=== PATIENT | female | born 1955 | race Caucasian/White ===

== ENCOUNTER 2017-12-05 10:46 | Emergency (ER) | payer OTHER ==
[2017-12-05 11:19] VITALS: BP 136/84
--- NOTE | 2017-12-05 11:33 | UC ---
Lower Extremity/Ankle HPI - HPI Summary HPI Summary: 62 yo female presents with right foot pain. She tells me that she was walking earlier today and inverted her foot - now has 5th MT pain. Took naproxen with mild pain relief. Denies numbness or tingling. Is able to bear weight, but has significant pain. - History of Current Complaint Chief Complaint: UCLowerExtremity Stated Complaint: FOOT INJURY Time Seen by Provider: 12/05/17 11:32 Hx Obtained From: Patient Onset/Duration: Sudden Onset Severity Initially: Severe Severity Currently: Severe Pain Intensity: 7 Pain Scale Used: 0-10 Numeric Aggravating Factor(s): Standing, Ambulation Alleviating Factor(s): Rest, Elevation Able to Bear Weight: Yes - Allergies/Home Medications Allergies/Adverse Reactions: Allergies Allergy/AdvReac Type Severity Reaction Status Date / Time Penicillins Allergy Intermediate Rash Verified 12/05/17 11:19 Home Medications: Home Medications Thiamine TAB* [Vitamin B-1 TAB 100 MG*] 1 tab PO DAILY 12/05/17 [History Confirmed 12/05/17] PMH/Surg Hx/FS Hx/Imm Hx Endocrine History: Diabetes, Dyslipidemia - Surgical History Surgical History: Yes Surgery Procedure, Year, and Place: Right wrist surgery. csection. ectopic - Family History Known Family History: Positive: Diabetes - Social History Occupation: Employed Full-time Lives: With Family Alcohol Use: Daily Substance Use Type: None Smoking Status (MU): Never Smoked Tobacco - Immunization History Most Recent Tetanus Shot: UTD Review of Systems Constitutional: Negative Skin: Negative Respiratory: Negative Cardiovascular: Negative Neurovascular: Negative Musculoskeletal: Other: - Right foot pain Neurological: Negative Psychological: Negative All Other Systems Reviewed And Are Negative: Yes Physical Exam - Summary Physical Exam Summary: GENERAL: NAD. WDWN. No pain distress. SKIN: No rashes, sores, lesions, or open wounds. NECK: Supple. Nontender. No lymphadenopathy. CHEST: No accessory muscle use. Breathing comfortably and in no distress. CV: Pulses intact PT and DP. Brisk cap refill. MSK: Right foot: 5th MT TTP. FROM. Strength 5/5. No edema or obvious bony deformities. Negative talar tilt. No increased laxity. NEURO: Alert. Sensations intact and symmetric B/L LEs PSYCH: Age appropriate behavior. Triage Information Reviewed: Yes Vital Signs: Initial Vital Signs Temp 98.9 F 12/05/17 11:14 Pulse 68 12/05/17 11:14 Resp 18 12/05/17 11:14 BP 136/84 12/05/17 11:14 Pulse Ox 100 12/05/17 11:14 Lower Extremity Course/Dx - Course Course Of Treatment: XR: IMPRESSION: Nondisplaced oblique fracture through the mid to distal diaphysis of the fifth. metatarsal with overlying soft tissue swelling. Predisposing decreased bone density with. corresponding with osteopenia on November 11, 2016 DEXA scan. Pt placed in CAM boot and advised to do as little weight bearing as possible. She declined crutches. Follow up with [facility]. - Differential Dx/Diagnosis Provider Diagnoses: Nondisplaced oblique fracture through the mid to distal diaphysis of the fifth. metatarsal Discharge - Sign-Out/Discharge Documenting (check all that apply): Discharge/Admit/Transfer - Discharge Plan Condition: Stable Disposition: HOME Patient Education Materials: Foot Fracture in Adults (ED) Referrals: Ki Blakely MD [Primary Care Provider] - Jaxson Coburn MD [Medical Doctor] - As Soon As Possible Additional Instructions: If you develop a fever, shortness of breath, chest pain, new or worsening symptoms - please call your PCP or go to the ED. Your blood pressure was high at todays visit. Please see your primary provider within 4 weeks for recheck and re-evaluation. 1) Rest, Ice, and elevate your foot as much as possible 2) May continue to take ibuprofen or naproxen for pain 3) Keep the CAM boot clean, dry, and intact until your appointment with orthopedics. 4) Please call Orthopedics at the number below to schedule a follow up appointment as soon as possible - Billing Disposition and Condition Condition: STABLE Disposition: Home
--- NOTE | 2017-12-05 12:05 | RAD ---
Indication: Lateral RIGHT foot pain along the fifth metatarsal following twisting injury. Associated swelling. Comparison: No relevant prior exams available on the [facility] for comparison. Technique: AP, lateral, and oblique views RIGHT foot. Report: Bone density appears decreased. Nondisplaced oblique fracture through the mid to distal diaphysis of the fifth metatarsal with overlying soft tissue swelling. Negative for additional fracture or articular malalignment. Mild osteophytosis at the first metatarsal phalangeal joint without significant joint space narrowing. IMPRESSION: Nondisplaced oblique fracture through the mid to distal diaphysis of the fifth metatarsal with overlying soft tissue swelling. Predisposing decreased bone density with corresponding with osteopenia on November 11, 2016 DEXA scan.
== END 2017-12-05 12:18 | disposition home or self-care (01) ==
LOC: UCEAST 10:46
DX: S92.354A Nondisplaced fracture of fifth metatarsal bone, right foot, initial encounter for closed fracture (principal); X50.1XXA Overexertion from prolonged static or awkward postures, initial encounter; Y93.01 Activity, walking, marching and hiking; Y92.9 Unspecified place or not applicable; E11.9 Type 2 diabetes mellitus without complications; Z79.84 Long term (current) use of oral hypoglycemic drugs; E78.5 Hyperlipidemia, unspecified; Z88.0 Allergy status to penicillin; Z83.3 Family history of diabetes mellitus
CPT/HCPCS: 99212; G0463

== ENCOUNTER 2019-06-13 10:22 | Emergency (ER) | payer OTHER ==
[2019-06-13 10:48] VITALS: BP 118/81
--- NOTE | 2019-06-13 11:02 | UC ---
Throat Pain/Nasal [place] HPI - HPI Summary HPI Summary: sore throat for 5 days no fevers chills, cough nausea or vomiting - History of Current Complaint Chief Complaint: UCGeneralIllness Stated Complaint: THROAT PAIN Time Seen by Provider: 06/13/19 10:43 Hx Obtained From: Patient ?: No Onset/Duration: Sudden Onset Pain Intensity: 0 Pain Scale Used: 0-10 Numeric Cough: None - Allergies/Home Medications Allergies/Adverse Reactions: Allergies Allergy/AdvReac Type Severity Reaction Status Date / Time Penicillins Allergy Intermediate Rash Verified 06/13/19 10:42 Home Medications: Home Medications Ibuprofen TAB* [Motrin TAB* 400 MG] 400 mg PO Q6H PRN 06/13/19 [History Confirmed 06/13/19] PMH/Surg Hx/FS Hx/Imm Hx Previously Healthy: No Endocrine History: Diabetes, Dyslipidemia - Surgical History Surgical History: Yes Surgery Procedure, Year, and Place: Right wrist surgery. csection. ectopic - Family History Known Family History: Positive: Diabetes - Social History Occupation: Employed Full-time Lives: With Family Alcohol Use: Daily Alcohol Amount: 1-2 glass of wine/ night Substance Use Type: None Smoking Status (MU): Never Smoked Tobacco - Immunization History Most Recent Tetanus Shot: UTD Review of Systems All Other Systems Reviewed And Are Negative: Yes Constitutional: Positive: Negative Skin: Positive: Negative Eyes: Positive: Negative ENT: Positive: Sore Throat Respiratory: Positive: Negative Cardiovascular: Positive: Negative Gastrointestinal: Positive: Negative Genitourinary: Positive: Negative Motor: Positive: Negative Neurovascular: Positive: Negative Musculoskeletal: Positive: Negative Neurological: Positive: Negative Psychological: Positive: Negative Is Patient Immunocompromised?: No Physical Exam Triage Information Reviewed: Yes Appearance: Well-Appearing, No Pain Distress, Well-Nourished Vital Signs: Initial Vital Signs Temp 97.7 F 06/13/19 10:44 Pulse 69 06/13/19 10:44 Resp 18 06/13/19 10:44 BP 118/81 06/13/19 10:44 Pulse Ox 100 06/13/19 10:44 Vital Signs Reviewed: Yes Eye Exam: Normal Eyes: Positive: Conjunctiva Clear ENT Exam: Normal ENT: Positive: Normal ENT inspection, Hearing grossly normal, Pharynx normal, TMs normal, Uvula midline. Negative: Nasal congestion, Nasal drainage, Tonsillar swelling, Tonsillar exudate, Trismus, Muffled voice, Hoarse voice, Dental tenderness, Sinus tenderness Dental Exam: Normal Neck exam: Normal Neck: Positive: Supple, Nontender, No Lymphadenopathy Respiratory Exam: Normal Respiratory: Positive: Chest non-tender, Lungs clear, Normal breath sounds, No respiratory distress, No accessory muscle use Cardiovascular Exam: Normal Cardiovascular: Positive: RRR, No Murmur, Pulses Normal, Brisk Capillary Refill Musculoskeletal Exam: Normal Musculoskeletal: Positive: Strength Intact, ROM Intact, No Edema Neurological Exam: Normal Neurological: Positive: Alert, Muscle Tone Normal Psychological Exam: Normal Skin Exam: Normal Diagnostics - Laboratory Lab Results: rst- Throat Pain/Nasal Course/Dx - Course Course Of Treatment: Tylenol, ibuprofen increase fluids follow with pcp prn - Differential Dx/Diagnosis Provider Diagnosis: Acute viral pharyngitis Discharge ED - Sign-Out/Discharge Documenting (check all that apply): Patient Departure All imaging exams completed and their final reports reviewed: No Studies - Discharge Plan Condition: Stable Disposition: HOME Patient Education Materials: Upper Respiratory Infection (ED), Viral Syndrome ( ED) Referrals: Ki Blakely MD [Primary Care Provider] - If Needed - Billing Disposition and Condition Condition: STABLE Disposition: Home - Attestation Statements Provider Attestation: I was available for consult. This patient was seen by the MARNIE. The patient was not presented to , seen by or examined by tx -Hamilton Cat MD
== END 2019-06-13 11:14 | disposition home or self-care (01) ==
LOC: UCEAST 10:22
DX: J02.9 Acute pharyngitis, unspecified (principal); Z88.0 Allergy status to penicillin; E11.9 Type 2 diabetes mellitus without complications
CPT/HCPCS: 87651; 99211; G0463

== ENCOUNTER 2019-09-12 13:50 | Emergency (ER) | payer MEDICARE, OTHER ==
[2019-09-12 16:00] VITALS: BP 132/77
[2019-09-12 16:21] LABS: Influenza A Molecular Negative (Negative); Influenza B Molecular Negative (Negative)
--- NOTE | 2019-09-12 16:22 | ED ---
HPI Febrile Illness - HPI Summary HPI Summary: 64 yo WF h/o DM p/w f/c/bodyaches and recent travel to [facility], came back 3 days ago. Pt states she is concerned about having had contracted Covid 19 from traveling and abroad, currently pt is exhibiting sx of fever, cough and bodyaches - History of Current Complaint Chief Complaint: UCRespiratory Time Seen by Provider: 09/12/19 15:52 Pain Intensity: 0 - Allergy/Home Medications Allergies/Adverse Reactions: Allergies Allergy/AdvReac Type Severity Reaction Status Date / Time Penicillins Allergy Intermediate Rash Verified 09/12/19 16:00 Home Medications: Home Medications Estradiol VAGINAL TAB(NF) [Vagifem] 10 mcg VAGINAL WEEKLY 03/01/16 [History Confirmed 09/12/19] Simvastatin TAB(NF) [Zocor(NF)] 40 mg PO DAILY 03/01/16 [History Confirmed 09/11] metFORMIN* [Glucophage*] 500 mg PO TID 03/01/16 [History Confirmed 09/12/19] Thiamine TAB* [Vitamin B-1 TAB 100 MG*] 1 tab PO DAILY 12/05/17 [History Confirmed 09/12/19] Ibuprofen TAB* [Motrin TAB* 400 MG] 400 mg PO Q6H PRN 06/13/19 [History Confirmed 09/12/19] Cholecalciferol (Vitamin D3) [Vitamin D3] 1 tab PO DAILY 09/12/19 [History Confirmed 09/12/19] Cyanocobalamin (Vitamin B-12) [Vitamin B-12] 1 tab PO DAILY 09/12/19 [History Confirmed 09/12/19] Levocetirizine Dihydrochloride [Xyzal] 1 tab PO DAILY 09/12/19 [History Confirmed 09/12/19] PMH/Surg Hx/FS Hx/Imm Hx Endocrine/Hematology History: Reports: Hx Diabetes - type 2 Musculoskeletal History: Denies: Hx Rheumatoid Arthritis, Hx Osteoporosis - Cancer History Hx Chemotherapy: No Hx Radiation Therapy: No - Surgical History Surgery Procedure, Year, and Place: Right wrist surgery. csection. ectopic Infectious Disease History: No Infectious Disease History: Reports: Hx Shingles, Traveled Outside the [place] in Last 30 Days - Family History Known Family History: Positive: Diabetes - Social History Alcohol Use: Daily Alcohol Amount: 1-2 glass of wine/ night Substance Use Type: Reports: None Smoking Status (MU): Never Smoked Tobacco Review of Systems Positive: Fever, Chills, Fatigue Eyes: Negative ENT: Negative Cardiovascular: Negative Respiratory: Negative Gastrointestinal: Negative Genitourinary: Negative Positive: Myalgia Skin: Negative Neurological/Mental Status: Negative All Other Systems Reviewed And Are Negative: Yes Physical Exam Triage Information Reviewed: Yes Vital Signs On Initial Exam: Initial Vitals Temp Pulse Resp BP Pulse Ox 37.1 C 76 18 132/77 96 09/12/19 15:52 09/12/19 15:52 09/12/19 15:52 09/12/19 15:52 09/12/19 15:52 Vital Signs Reviewed: Yes Diagnostics - Vital Signs Vital Signs Temp Pulse Resp BP Pulse Ox 09/12/19 15:52 37.1 C 76 18 132/77 96 - Laboratory Lab Results: Lab Results 09/12/19 Range/Units 16:01 Group A Strep Rapid Negative (Negative) Lab Statement: Any lab studies that have been ordered have been reviewed, and results considered in the medical decision making process. Course/Dx - Course Assessment/Plan: Patient request, for testing as she has been traveling to [facility] and expose to those exposed to level coronavirus. Patient is a diabetic , with fever and cough. Patient called health Department who recommended that she get COVID 19 testing and respiratory panel testing - Diagnoses Provider Diagnoses: Viral syndrome Discharge ED - Sign-Out/Discharge Documenting (check all that apply): Patient Departure All imaging exams completed and their final reports reviewed: No Studies - Discharge Plan Condition: Stable Disposition: HOME Referrals: Ki Blakely MD [Primary Care Provider] - - Billing Disposition and Condition Condition: STABLE Disposition: Home
== END 2019-09-12 17:10 | disposition home or self-care (01) ==
LOC: UCEAST 13:50
DX: B34.9 Viral infection, unspecified (principal); R05 Cough; M79.10 Myalgia, unspecified site; Z88.0 Allergy status to penicillin; E11.9 Type 2 diabetes mellitus without complications; Z79.84 Long term (current) use of oral hypoglycemic drugs
CPT/HCPCS: 87651; 99213; G0463